=== PATIENT | female | born 1935 | race Caucasian/White ===

== ENCOUNTER → 2017-12-04 | Outpatient (CLI) | payer MEDICARE, BC | LOC: M.RAD 16:11 | DX: M25.532 Pain in left wrist (principal); M79.642 Pain in left hand ==

== ENCOUNTER → 2018-03-05 | Outpatient (CLI) | payer MEDICARE, BC | LOC: M.RAD 17:01 | DX: M41.86 Other forms of scoliosis, lumbar region (principal); M54.5 Low back pain; G89.29 Other chronic pain; Z68.29 Body mass index [BMI] 29.0-29.9, adult ==

== ENCOUNTER → 2019-11-24 | Outpatient (CLI) | payer MEDICARE, BC | LOC: M.RAD 14:00 | PROVIDERS: ATTEND Internal Medicine | DX: M51.36 Other intervertebral disc degeneration, lumbar region (principal); E03.9 Hypothyroidism, unspecified; E11.9 Type 2 diabetes mellitus without complications; I10 Essential (primary) hypertension; G89.29 Other chronic pain; J98.4 Other disorders of lung; M47.816 Spondylosis without myelopathy or radiculopathy, lumbar region; M48.061 Spinal stenosis, lumbar region without neurogenic claudication; M85.88 Other specified disorders of bone density and structure, other site ==

== ENCOUNTER → 2020-07-26 | Outpatient (CLI) | payer MEDICARE, BC | LOC: M.RAD 12:56 | PROVIDERS: ATTEND Internal Medicine | DX: M85.88 Other specified disorders of bone density and structure, other site (principal); Z78.0 Asymptomatic menopausal state ==